=== PATIENT | male | born 1950 | race Two or more races ===

== ENCOUNTER → 2020-05-25 | Outpatient (CLI) | payer MEDICARE, SELFPAY ==
[2020-05-25 13:23] LABS: Vitamin B12 1446 pg/mL (211-911)
[2020-05-25 13:28] LABS: Creatinine, Serum 0.53 mg/dL (0.70-1.30); EST Glomerular Filtration Rate 166 mL/min (>60)
[2020-05-25 13:29] LABS: Est Glom Filt Rate - Afr Amer 201 mL/min (>60)
== END | disposition home or self-care (01) ==
LOC: LABSPEC 12:48
DX: D33.0 Benign neoplasm of brain, supratentorial (principal); G62.9 Polyneuropathy, unspecified
CPT/HCPCS: 82565; 82607